=== PATIENT | male | born 2000 | race Caucasian/White ===

== ENCOUNTER 2018-11-05 23:34 | Emergency (ER) | payer BC ==
--- NOTE | 2018-11-06 00:18 | ED ---
General Adult HPI - General Chief complaint: Chest Pain Stated complaint: Chest Pain Time Seen by Provider: 11/05/18 23:58 Source: patient, family, RN notes reviewed Mode of arrival: ambulatory Limitations: no limitations - History of Present Illness Initial comments: Chief complaint and history of present illness a 18-year-old male here with his significant other. Patient reports that for the last week to 10 days been coughing. He has discomfort to his left lower and anterior rib cage pain occasionally also causes discomfort to the left arm. No sensation at sweats no nausea no vomiting. Pain also increases slightly with deep breathing. Does have a past history of pneumonia several times over the past several years. Flu shot denies fever - Related Data Previous Rx's Medication Instructions Recorded Azithromycin [Zithromax] 500 mg PO DAILY #5 tab 01/18/16 Azithromycin [Zithromax Z-pack] 250 mg PO DIRECTED #6 tab 11/06/18 Allergies Allergy/AdvReac Type Severity Reaction Status Date / Time No Known Allergies Allergy Verified 11/05/18 23:43 Review of Systems ROS Statement: Those systems with pertinent positive or pertinent negative responses have been documented in the HPI. Review of systems. No headache or visual acuity changes patient does not complain of feeling short of breath but he does have coughing jags which increases pain to his left lateral rib cage. Splinting the area decrease the di scomfort. Patient denies nausea vomiting and his note neuro deficits. All systems reviewed. Past medical problems significant for pneumonia 3 or 4 times within the last 3 or 4 years. Patient denies any surgeries. Family history no cancers and no young man or women with heart disease. Patient denies ALLERGIES. Does smoke strongly encouraged to stop denies alcohol use. ROS Other: All systems not noted in ROS Statement are negative. Past Medical History Past Medical History: Pneumonia History of Any Multi-Drug Resistant Organisms: None Reported Past Surgical History: No Surgical Hx Reported Past Psychological History: No Psychological Hx Reported Smoking Status: Never smoker Past Alcohol Use History: None Reported Past Drug Use History: Marijuana General Exam - General Exam Comments Initial Comments: General: The patient is awake and alert, in no distress, and does not appear acutely ill. Here because of left-sided chest pain which increases with breathing and significantly increases with coughing. Decreases with splinting. Vital signs shows temperature 98.6 pulse 35 respiratory rate 18 pulse ox on percent room air blood pressure 120/60 Eye: Pupils are equal, round and reactive to light, extra-ocular movements are intact; there is normal conjunctiva bilaterally. No signs of icterus. Ears, nose, mouth and throat: There are moist mucous membranes and no oral lesions. Neck: The neck is supple, there is no tenderness, no anterior cervical lymphadenopathy. Cardiovascular: There is a regular rate and rhythm. No murmur, rub or gallop is appreciated. Respiratory: Rhonchi in the left side of the chest, pain increases with deep breathing and coughing in the same area. Splinting decrease his discomfort. No rash noted. Gastrointestinal: No complaint of nausea vomiting Back: No rash, no back pain Musculoskeletal: Normal ROM, no tenderness, There is no pedal edema.. Neurological: Denies any neuro deficits Skin: No rashes noted Psychiatric: Cooperative, Limitations: no limitations Course Vital Signs 11/05/18 23:41 Temperature 98.6 F Pulse Rate 85 Respiratory 18 Rate Blood Pressure 120/60 O2 Sat by Pulse 100 Oximetry EKG Findings - EKG Comments: EKG Findings:: EKG was done and reviewed at 2352 showing normal sinus rhythm no evidence of any acute ST elevation no ectopy and no ischemic changes. Rate 75 IN interval is 132 QRS is 26 QT was 354 QTc 395. No old EKG available to compare to. Dr. Choudhury Medical Decision Making - Medical Decision Making Medical decision making; this is a 18-year-old male here with his significant other with a complaint of pain with coughing and deep breathing on the left side. Auscultation of the lungs show some rhonchi on that same side. There is a past history of pneumonias. We discussed mild costal chondritis, pneumonia, pleurisy, bronchitis. The plan the patient be advised to take ibuprofen 600 mg every 6 hours for pain. Increase fluids. Stop smoking as soon as possible. And also take a Z-Sascha for bronchitis. Disposition Clinical Impression: Bronchitis, Pleurisy without effusion Disposition: HOME SELF-CARE Condition: Fair Instructions (If sedation given, give patient instructions): Acute Bronchitis (ED), Pleurisy (ED) Additional Instructions: Take Z-Sascha as directed until completed. Stop smoking. Take ibuprofen 600 mg every 6 hours. Follow-up with family physician return emergency room as needed Prescriptions: Azithromycin [Zithromax Z-pack] 250 mg PO DIRECTED #6 tab Is patient prescribed a controlled substance at d/c from ED?: No Referrals: Al Henriquez MD [Primary Care Provider] - 1-2 days Time of Disposition: 00:51
--- NOTE | 2018-11-06 00:30 | XR ---
EXAM: XR Chest, 2 Views CLINICAL HISTORY: Left-sided chest pain TECHNIQUE: Frontal and lateral views of the chest. COMPARISON: No relevant prior studies available. FINDINGS: Lungs: Unremarkable. No consolidation. Pleural space: Unremarkable. No pneumothorax. Heart: Unremarkable. No cardiomegaly. Mediastinum: Unremarkable. Bones/joints: Unremarkable. IMPRESSION: Normal chest x-rays.
[2018-11-06 01:07] VITALS: BP 114/55; PULSE 90; RESP 19; TEMP 98.1
== END 2018-11-06 01:06 | disposition home or self-care (01) ==
LOC: EC 23:34
DX: J40 Bronchitis, not specified as acute or chronic (principal); R09.1 Pleurisy; Z87.01 Personal history of pneumonia (recurrent)
CPT/HCPCS: 71046; 99284

== ENCOUNTER 2018-11-17 01:42 | Emergency (ER) | payer BC ==
[2018-11-17 01:46] VITALS: RESP 20
[2018-11-17] MEDS ORDERED: IBUPROFEN 800 MG TAB PO STA (02:12)
[2018-11-17] MEDS ORDERED: ACETAMINOPHEN TAB 325 MG TAB PO STA (02:12)
--- NOTE | 2018-11-17 02:56 | ED ---
Fever HPI - General Source: patient Mode of arrival: ambulatory Limitations: no limitations <Viky Valentine - Last Filed: 11/17/18 03:36> <Herminia Thompson - Last Filed: 11/17/18 21:10> - General Chief Complaint: Fever Stated Complaint: Fever/Flu Symptoms Time Seen by Provider: 11/17/18 01:44 - History of Present Illness Initial Comments: 18yo male with no past nuchal history presenting today for chief complaint of fever, bodyaches sore throat. Patient states that earlier this month was diagnosed with mono. He stated to be cleared was diagnosed with bronchitis. He states he has been on steroids. He states he had somewhat improvement over the past few days following diagnosis of bronchitis. However yesterday began to develop high fever, bodyaches headache and sore throat. Denies shortness of breath or difficulty breathing. He wound episode of emesis earlier today. No additional. He states his stools with softer than normal. Patient states he has been congested. He has been taking NyQuil for bodyaches and fever. Patient states last dose was earlier this evening. Upon arrival patient's febrile heart rate elevated. Patient was concerned of influenza and presented for evaluation. Patient denies any abdominal pain, melena hematochezia or hematemesis. He denies neck stiffness or photophobia. Remaining ROS (-), patient denies any recent dyspnea on exertion, LE swelling, chest pain, back pain, numbness or tingling, dysuria or hematuria, constipation, visual changes, or any other co mplaints. (Viky Valentine) - Related Data Previous Rx's Medication Instructions Recorded Azithromycin [Zithromax] 500 mg PO DAILY #5 tab 01/18/16 Azithromycin [Zithromax Z-pack] 250 mg PO DIRECTED #6 tab 11/06/18 Oseltamivir [Tamiflu] 75 mg PO Q12HR 5 Days #10 cap 11/17/18 Allergies Allergy/AdvReac Type Severity Reaction Status Date / Time No Known Allergies Allergy Verified 11/17/18 01:46 Review of Systems ROS Other: All systems not noted in ROS Statement are negative. <Viky Valentine - Last Filed: 11/17/18 03:36> ROS Other: All systems not noted in ROS Statement are negative. <Herminia Thompson - Last Filed: 11/17/18 21:10> ROS Statement: Those systems with pertinent positive or pertinent negative responses have been documented in the HPI. Past Medical History Past Medical History: Pneumonia History of Any Multi-Drug Resistant Organisms: None Reported Past Surgical History: No Surgical Hx Reported Past Psychological History: No Psychological Hx Reported Smoking Status: Never smoker Past Alcohol Use History: None Reported Past Drug Use History: Marijuana <Viky Valentine L - Last Filed: 11/17/18 03:36> General Exam Limitations: no limitations <Viky Valentine L - Last Filed: 11/17/18 03:36> - General Exam Comments Initial Comments: General: The patient is awake and alert, in no distress, and does not appear acutely ill. Eye: +3 mm pupils are equal, round and reactive to light, extra-ocular movements are intact. No nystagmus. There is normal conjunctiva bilaterally. No signs of icterus. No photophobia Ears, nose, mouth and throat: There are moist mucous membranes and no oral lesions. Oropharynx was not erythematous there is no tonsillar enlargement exudates or lesions. Uvula midline. Tympanic membranes are not erythematous or is no effusions bulging or retraction. No tenderness to palpation of the mastoid. No anterior cervical lymphadenopathy. Rhinorrhea, clear and bilateral nares. No tripoding, no drooling. Neck: The neck is supple, there is no tenderness or JVD. No nuchal rigidity negative Brudzinski and Kernig Cardiovascular: There is a regular rate and rhythm. No murmur, rub or gallop is appreciated. Respiratory: Lungs are clear to auscultation, respirations are non-labored, breath sounds are equal. No wheezes, stridor, rales, or rhonchi. No retractio ns or abdominal breathing. Gastrointestinal: Soft, non-distended, non-tender abdomen without masses or organomegaly noted. There is no rebound or guarding present. Bowel sounds are unremarkable. Musculoskeletal: Normal ROM, no tenderness. Strength 5/5. Sensation intact. Radial pulses equal bilaterally 2+. Neurological: A&O x 3. CN II-XII intact, There are no obvious motor or sensory deficits. Coordination appears grossly intact. Speech appears normal, no muffling. Skin: Skin is warm and dry and no rashes or lesions are noted. No extremity edema Psychiatric: Cooperative (Viky Valentine) Course Vital Signs 11/17/18 11/17/18 01:44 02:59 Temperature 103 F H 101.8 F H Pulse Rate 105 H 96 Respiratory 20 20 Rate Blood Pressure 123/70 130/69 O2 Sat by Pulse 100 97 Oximetry Medical Decision Making <Viky Valentine - Last Filed: 11/17/18 03:36> <Herminia Thompson - Last Filed: 11/17/18 21:10> - Medical Decision Making 18-year-old male presenting for onset of fever bodyaches and headache beginning yesterday. Patient febrile upon arrival heart rate elevated. Influenza A positive. Chest x-ray revealed no acute cardiopulmonary process no areas concerning for focal consolidation, lungs clear to auscultation. No complaints of chest pain, neck stiffness. No nuchal rigidity on examination. At this time there is no complicating process evident. Patient had improvement of fever and resolution of tachycardia. At this time I feel patient is stable for discharge, with outpatient follow-up, symptomatic care with ibuprofen and Tylenol for fever management and by mouth hydration. Patient is agreeable with plan as well as discharge. All return parameters were discussed with patient who verbalized understanding. Patient discharged appearing well (Viky Valentine) I was available for consultation in the emergency department. The history and physical exam were done by the midlevel provider. I was consulted for this patient's care. I reviewed the case with the midlevel provider and based on their presentation of the patient, I agree with the assessment, medical decision making and plan of care as documented. (Herminia Thompson) - Lab Data Lab Results 11/17/18 Range/Units 01:55 Influenza Type A RNA Detected H (Not Detectd) Influenza Type B (PCR) Not Detected (Not Detectd) Disposition Is patient prescribed a controlled substance at d/c from ED?: No Time of Disposition: 03:32 <Viky Valentine - Last Filed: 11/17/18 03:36> <Herminia Thompson - Last Filed: 11/17/18 21:10> Clinical Impression: Influenza A Disposition: HOME SELF-CARE Condition: Good Instructions (If sedation given, give patient instructions): Influenza (ED) Additional Instructions: Please use medication as discussed. Please follow-up with family doctor in the next 2 days. Please return to emergency room if the symptoms increase or worsen or for any other concerns. Prescriptions: Oseltamivir [Tamiflu] 75 mg PO Q12HR 5 Days #10 cap Referrals: Al Henriquez MD [Primary Care Provider] - 1-2 days
[2018-11-17 03:02] VITALS: BP 130/69; PULSE 96; TEMP 101.8
--- NOTE | 2018-11-17 07:34 | XR ---
EXAMINATION TYPE: XR chest 2V DATE OF EXAM: 11/17/2018 COMPARISON: 11/06/2018 HISTORY: Chest pain TECHNIQUE: Frontal and lateral views of the chest are obtained. FINDINGS: There is no focal air space opacity, pleural effusion, or pneumothorax seen. The cardiac silhouette size is within normal limits. The osseous structures are intact. IMPRESSION: No acute cardiopulmonary process.
== END 2018-11-17 03:42 | disposition home or self-care (01) ==
LOC: EC 01:42
DX: J10.1 Influenza due to other identified influenza virus with other respiratory manifestations (principal)
CPT/HCPCS: 71046; 87502; 99283